=== PATIENT | female | born 1950 | race Caucasian/White ===

== ENCOUNTER 2018-05-14 10:00 | Day surgery (SDC) | payer MEDICARE ==
[~2018-05-14] VITALS: Ht 160 cm; Wt 44.1 kg
[2018-05-14] MEDS ORDERED: MIDAZolam 5mg/5ml vial ONE (10:15)
[2018-05-14] MEDS ORDERED: LIDOcaine Viscous 15ml cup ONE (10:15)
[2018-05-14] MEDS ORDERED: fentaNYL/PF 50MCG/1 ML 2ML syringe ONE (10:15)
[2018-05-14] MEDS ORDERED: ESOM40CA30 PO (11:03)
[2018-05-14] MEDS ORDERED: SUMA50TA PO (11:03)
[2018-05-14 11:08] VITALS: BP 149/84
[2018-05-14 11:26] VITALS: BP 131/74
[2018-05-14 11:36] VITALS: BP 127/70
[2018-05-14 11:46] VITALS: BP 128/62
[2018-05-14 11:56] VITALS: BP 150/66
== END 2018-05-14 12:06 | disposition home or self-care (01) ==
LOC: GI LAB 10:00
PROVIDERS: ATTEND Internal Medicine Gastroenterology
DX: D12.2 Benign neoplasm of ascending colon (principal); K29.50 Unspecified chronic gastritis without bleeding; K57.30 Diverticulosis of large intestine without perforation or abscess without bleeding; K44.9 Diaphragmatic hernia without obstruction or gangrene; K22.2 Esophageal obstruction; K21.0 Gastro-esophageal reflux disease with esophagitis; Z91.041 Radiographic dye allergy status; Z86.010 Personal history of colon polyps; Z88.5 Allergy status to narcotic agent; Z79.899 Other long term (current) drug therapy
CPT/HCPCS: 43239; 43450; 45381; 45385; 99153; G0500; J2250; J3010; J7030; 88305; 99152; A4620